=== PATIENT | male | born 1965 | race Caucasian/White ===

== ENCOUNTER 2018-05-07 21:43 | Emergency (ER) | payer BC ==
--- NOTE | 2018-05-07 22:08 | EDM.PDOC ---
ED HPI GENERAL MEDICAL PROBLEM - General Chief Complaint: General Stated Complaint: "had a dizzy spell at work" Time Seen by Provider: 05/07/18 21:59 Source of Information: Reports: Patient History Limitations: Reports: No Limitations - History of Present Illness INITIAL COMMENTS - FREE TEXT/NARRATIVE: This patient is a 52 year old male that presents to the ER. Patient reports that he works at the [employer]. He reports that it was hot and he does manual labor lifting heavy objects. The patient reports that he was feelng hungry, then began to feel lightheaded, nauseated, hot. He reports he felt like he may pass out. He removed himself from the line at work, sat down and ate his sandwhich. He reports that after eating he did feel better and after cooling off. He reports that since he was at work and removed himself from the line he felt he should get checked out. He reports he was concerned. The patient reports that he has lost 25lbs in the last 90 days just from working. He reports he has history of HTN. Denies smoking, drugs, alcohol. Denies cardiac history. Onset: Today Onset Date: 05/07/18 Onset Time: 20:00 Severity: Mild Improves with: Reports: None Worsens with: Reports: None Associated Symptoms: Reports: Nausea/Vomiting. Denies: Confusion, Chest Pain, Cough, cough w sputum, Diaphoresis, Fever/Chills, Headaches, Loss of Appetite, Malaise, Rash, Seizure, Shortness of Breath, Syncope, Weakness - Related Data Allergies Allergy/AdvReac Type Severity Reaction Status Date / Time No Known Allergies Allergy Verified 08/20/14 19:03 Home Meds: Home Meds Metoprolol Tartrate 50 mg PO BID 08/20/14 [History] Multivitamin [Multi Vitamin Daily] 1 each PO DAILY 08/20/14 [History] Lisinopril/Hydrochlorothiazide [Lisinopril-Hctz 20-25 mg Tab] 0.5 tab PO DAILY 05/07/18 [History] Sertraline [Zoloft] 50 mg PO DAILY 05/07/18 [History] Past Medical History Cardiovascular History: Reports: Hypertension Psychiatric History: Reports: Depression - Past Surgical History Cardiovascular Surgical History: Reports: None Social & Family History - Tobacco Use Smoking Status *Q: Never Smoker - Caffeine Use Caffeine Use: Reports: Coffee, Energy Drinks, Soda - Recreational Drug Use Recreational Drug Use: No ED ROS GENERAL - Review of Systems Review Of Systems: See Below Constitutional: Reports: No Symptoms HEENT: Reports: No Symptoms Respiratory: Reports: No Symptoms Cardiovascular: Reports: Lightheadedness. Denies: Chest Pain, Blood Pressure Problem, Dyspnea on Exertion, Edema, Palpitations, Syncope Endocrine: Reports: No Symptoms GI/Abdominal: Reports: Nausea. Denies: Abdominal Pain, Diarrhea, Vomiting : Reports: No Symptoms Musculoskeletal: Reports: No Symptoms Skin: Reports: No Symptoms Neurological: Reports: No Symptoms. Denies: Confusion, Dizziness, Headache, Numbness, Pre-Existing Deficit, Seizure, Syncope, Tingling, Tremors, Trouble Speaking, Difficulty Walking, Weakness, Change in Speech, Gait Disturbance Psychiatric: Reports: No Symptoms Hematologic/Lymphatic: Reports: No Symptoms Immunologic: Reports: No Symptoms ED EXAM, GENERAL - Physical Exam Exam: See Below Exam Limited By: No Limitations General Appearance: Alert, WD/WN, No Apparent Distress Eye Exam: Bilateral Eye: Normal Inspection Ears: Normal External Exam, Normal Canal, Hearing Grossly Normal, Normal TMs Ear Exam: Bilateral Ear: Auricle Normal, Canal Normal, TM normal Nose: Normal Inspection, Normal Mucosa, No Blood Throat/Mouth: Normal Inspection, Normal Lips, Normal Teeth, Normal Gums, Normal Oropharynx, Normal Voice, No Airway Compromise Head: Atraumatic, Normocephalic Neck: Normal Inspection, Supple, Non-Tender, Full Range of Motion Respiratory/Chest: No Respiratory Distress, Lungs Clear, Normal Breath Sounds, No Accessory Muscle Use Cardiovascular: Normal Peripheral Pulses, Regular Rate, Rhythm, No Edema, No Gallop, No JVD, No Murmur, No Rub Peripheral Pulses: 2+: Radial (L), Radial (R), Posterior Tibial (L), Posterior Tibial (R) GI/Abdominal: Soft, Non-Tender Back Exam: Normal Inspection, Full Range of Motion Extremities: Normal Inspection, Normal Range of Motion, Non-Tender, No Pedal Edema, Normal Capillary Refill Neurological: Alert, Oriented, CN II-XII Intact, Normal Cognition, Normal Gait, No Motor/Sensory Deficits Psychiatric: Normal Affect, Normal Mood Skin Exam: Warm, Dry, Intact, Normal Color, No Rash Lymphatic: No Adenopathy EKG INTERPRETATION EKG Date: 05/07/18 Time: 22:11 Rhythm: NSR Rate (Beats/Min): 69 Circle: Normal QRS: Normal ST-T: Normal QT: Normal Comparison: NA - No Prior EKG Course - Vital Signs Last Recorded V/S: Last Vital Signs Temp 97.6 F 05/07/18 21:45 Pulse 78 05/07/18 21:45 Resp 16 05/07/18 21:45 BP 131/71 05/07/18 21:45 Pulse Ox 96 05/07/18 21:45 Orthostatic Blood Pressure [ 131/96 Standing] Orthostatic Blood Pressure [ 131/90 Sitting] Orthostatic Blood Pressure [ 117/78 Supine] - Orders/Labs/Meds Orders: Active Orders 24 hr Category Date Time Status EKG Documentation Completion [RC] STAT Care 05/07/18 22:05 Active Orthostatic Vital Signs [RC] ASDIRECTED Care 05/07/18 22:11 Active Sodium Chloride 0.9% [Normal Saline] 1,000 ml Med 05/07/18 22:42 Active IV .BOLUS Medication Orders Sodium Chloride (Normal Saline) 1,000 mls @ 1,000 mls/hr IV .BOLUS ONE Stop: 05/07/18 23:41 Labs: Laboratory Tests 05/07/18 05/07/18 Range/Units 22:15 22:15 WBC 10.9 H (5.0-10.0) 10^3/uL RBC 5.07 (4.50-6.00) 10^6/uL Hgb 15.5 (14.0-18.0) g/dL Hct 46.6 (40.0-54.0) % MCV 91.9 (82.0-94.0) fL MCH 30.6 (27.0-32.0) pg MCHC 33.3 (33.0-38.0) g/dL RDW Coeff of Yue 14.1 (11.0-15.0) % Plt Count 233 (150-400) 10^3/uL Neut % (Auto) 77.3 (35-85) % Lymph % (Auto) 14.5 (10-55) % Sawyer % (Auto) 7.5 (0-16) % Eos % (Auto) 0.5 (0-5) % Baso % (Auto) 0.2 (0-3) % Neut # (Auto) 8.44 H (1.80-7.00) 10^3/uL Lymph # (Auto) 1.58 (1.00-4.80) 10^3/uL Sawyer # (Auto) 0.82 H (0.00-0.80) 10^3/uL Eos # (Auto) 0.06 (0.00-0.45) 10^3/uL Baso # (Auto) 0.02 10^3/uL Sodium 137 (136-145) mEq/L Potassium 4.8 (3.5-5.0) mEq/L Chloride 99 (98-106) mEq/L Carbon Dioxide 32 (21-32) mmol/L BUN 27 H (7-18) mg/dL Creatinine 2.4 H D (0.7-1.3) mg/dL Est Cr Clr Drug Dosing 33.28 mL/min Estimated GFR (MDRD) 28 L (>=60) mL/min Glucose 177 H D (75-99) mg/dL Calcium 9.5 (8.4-10.1) mg/dL Total Bilirubin 0.4 (0.0-1.0) mg/dL AST 29 (15-37) U/L ALT 54 (12-78) U/L Alkaline Phosphatase 59 (46-116) U/L Troponin I < 0.017 (0.00-0.06) ng/mL Total Protein 8.3 H (6.4-8.2) g/dL Albumin 4.1 (3.4-5.0) g/dL Meds: Medications Generic Name Dose Route Start Last Admin Trade Name Freq PRN Reason Stop Dose Admin Sodium Chloride 1,000 mls @ 1,000 mls/hr 05/07/18 22:42 Normal Saline IV 05/07/18 23:41 .BOLUS ONE - Re-Assessments/Exams Free Text/Narrative Re-Assessment/Exam: 05/07/18 22:32 Orthostatics: WNL: Patient denies lightheaded or any symptoms with orthostatics. He is currently asymptomatic in the ER. laying 117/78, 68 sitting 131/90, 69 standing 131/96, 82 05/07/18 22:43 This patient CR is 2.4, on average is about 1.4. I have ordered NS bolus 1L. I have discussed with the patient admission for rehydration due to renal insufficiency. The patient does not want to be admitted. He says he is no longer lightheaded and feels fine. He reports he would like to go home. I discussed with the patient if he wants to go home, that he needs to see his PCP tomorrow, have labs repeated and may possibly need more fluids tomorrow depending on labs. The patient is okay with this plan. Departure - Departure Time of Disposition: 22:45 Disposition: Home, Self-Care 01 Condition: Fair Clinical Impression: Renal insufficiency, Dehydration - Discharge Information Instructions: Dehydration, Adult, [id number] Referrals: Gucci Witt MD [Primary Care Provider] - Forms: ED Department Discharge Additional Instructions: Followup with your primary care provider tomorrow for repeat labs and recheck Return to the ER for worsening of condition or any emergent concerns Increase Water intake Rest for 24 hours Stay cool for at least 24 hours - My Orders Last 24 Hours: My Active Orders 05/07/18 22:05 EKG Documentation Completion [RC] STAT 05/07/18 22:11 Orthostatic Vital Signs [RC] ASDIRECTED 05/07/18 22:42 Sodium Chloride 0.9% [Normal Saline] 1,000 ml IV .BOLUS - Assessment/Plan Last 24 Hours: My Active Orders 05/07/18 22:05 EKG Documentation Completion [RC] STAT 05/07/18 22:11 Orthostatic Vital Signs [RC] ASDIRECTED 05/07/18 22:42 Sodium Chloride 0.9% [Normal Saline] 1,000 ml IV .BOLUS Plan: PLEASE SEE RN NOTE FOR PFSH.
[2018-05-07 22:34] LABS: CHLORIDE,CL 99 mEq/L (98-106); SODIUM,NA 137 mEq/L (136-145)
[2018-05-07] MEDS: Sodium Chloride 0.9% 1,000 ML IV ONE ×2 (22:49→23:51)
== END 2018-05-08 01:00 | disposition home or self-care (01) ==
LOC: CC.ED 21:43
DX: N28.9 Disorder of kidney and ureter, unspecified (principal); E86.0 Dehydration; I10 Essential (primary) hypertension; Z79.899 Other long term (current) drug therapy
CPT/HCPCS: 36415; 80053; 84484; 85025; 93005; 96365; 96366; 99284; J7030

== ENCOUNTER 2021-07-14 21:49 | Emergency (ER) | payer MEDICAID ==
[2021-07-14] MEDS ORDERED: Labetalol 100 MG/20 ML MDV IVPUSH ONE ×5 (22:22→23:40)
[2021-07-14 22:32] LABS: CHLORIDE,CL 97 mEq/L (98-106); PTT,PARTIAL THROMBOPLSTIN TIME 26.2 SEC (23.2-32.3); SODIUM,NA 138 mEq/L (136-145)
[2021-07-14] MEDS ORDERED: Acetaminophen 650 MG Supp RECTAL ONE (22:44)
[2021-07-14] MEDS ORDERED: Labetalol 100 MG in Sodium Chloride 0.9% 100 ML IV SCH (23:00)
--- NOTE | 2021-07-14 23:20 | EDM.PDOC ---
ED HPI GENERAL MEDICAL PROBLEM - General Chief Complaint: General Stated Complaint: possible stroke Time Seen by Provider: 07/14/21 22:00 Source of Information: Reports: Patient, EMS, RN History Limitations: Reports: Altered Mental Status - History of Present Illness INITIAL COMMENTS - FREE TEXT/NARRATIVE: Ramon is a 55 yo male who is brought into the ED via [facility] with complaints of stroke symptoms. Patient had been found to be screaming at his residence this evening. Neighbor did call 911 and police had to gain entrance thru the window to let them in the house. Patient was found lying on his left side on the floor. They state he was answering questions however speech was significantly slurred. They state there was no movement of the left upper and lower extremity, which were cold to touch. They did state he had obvious facial drip as well. Upon arrival to the ED patient continued to show significant facial drip with hemiparesis of the left side of his body. Right pupil was reactive. Left pupil was fixed. He did answer correctly to person and place. He did know the current year but unable to distinguish which month. Initial NIHSS score of 21. Unknown l ast being well. - Related Data Allergies Allergy/AdvReac Type Severity Reaction Status Date / Time No Known Allergies Allergy Verified 07/14/21 22:38 Home Meds: Home Meds Metoprolol Tartrate 50 mg PO BID 08/20/14 [History] Multivitamin [Multi Vitamin Daily] 1 each PO DAILY 08/20/14 [History] Lisinopril/Hydrochlorothiazide [Lisinopril-Hctz 20-25 mg Tab] 0.5 tab PO DAILY 05/07/18 [History] Sertraline [Zoloft] 50 mg PO DAILY 05/07/18 [History] Past Medical History Cardiovascular History: Reports: Hypertension Psychiatric History: Reports: Depression - Past Surgical History Cardiovascular Surgical History: Reports: None Social & Family History - Caffeine Use Caffeine Use: Reports: Coffee, Energy Drinks, Soda ED ROS GENERAL - Review of Systems Review Of Systems: Unable To Obtain Reason Not Obtained: CVA ED EXAM, GENERAL - Physical Exam Exam: See Below Exam Limited By: Altered Mental Status General Appearance: Alert, Lethargic Eye Exam: Right Eye: Abnormal Pupil, Left Eye: PERRL, Bilateral Eye: EOMI Ears: Normal External Exam, Normal Canal, Hearing Grossly Normal, Normal TMs Nose: Normal Inspection, Normal Mucosa, No Blood Throat/Mouth: Normal Gums, Normal Oropharynx, Normal Voice, No Airway Compromise Head: Atraumatic, Normocephalic Neck: Normal Inspection, Supple Respiratory/Chest: No Respiratory Distress, Lungs Clear, No Accessory Muscle Use Cardiovascular: Regular Rate, Rhythm, No Edema, No Murmur Peripheral Pulses: 2+: Posterior Tibial (L), Posterior Tibial (R), Dorsalis Pedis (L), Dorsalis Pedis (R) GI/Abdominal: Normal Bowel Sounds, Soft Neurological: Slow to Respond, Sensory/Motor Deficit (NIHSS 21 - unable to move left upper and lower extremity. Obvious facial drip on the left. Pupil fixed on the right. ) Psychiatric: Flat Affect Skin Exam: Cool (left upper and lower extremity) #1 Interpretation EKG Date: 07/14/21 Time: 22:00 Rhythm: NSR Comparison: NA - No Prior EKG EKG Interpretation Comments: Left posterior fascicular block, possible inferior infarct Course - Orders/Labs/Meds Orders: Active Orders 24 hr Category Date Time Status Head wo Cont [CT] Routine Exams 07/14/21 Taken Labetalol [Normodyne] 100 mg Med 07/14/21 23:00 Ordered Sodium Chloride 0.9% [Normal Saline] 100 ml IV TITRATE Medication Orders Labetalol HCl 100 mg/ Sodium (Chloride) 120 mls @ 36 mls/hr IV TITRATE LETA; Protocol Labs: Laboratory Tests 07/14/21 07/14/21 07/14/21 Range/Units 22:04 22:12 22:12 WBC 8.9 (4.0-11.0) 10^3/uL RBC 5.69 (4.50-6.00) x10^6/uL Hgb 17.0 (14.0-18.0) g/dL Hct 50.4 (42.0-52.0) % MCV 88.6 (83.0-97.0) fL MCH 29.9 (27.0-32.0) pg MCHC 33.7 (32.0-36.0) g/dL RDW Coeff of Yue 13.5 (11.0-15.0) % Plt Count 221 (150-400) 10^3/uL Immature Gran % (Auto) 0.1 (0.0-4.9) % Neut % (Auto) 84.4 H (41-71) % Lymph % (Auto) 3.6 L (24-44) % [place]phill % (Auto) 11.7 H (0-10) % Eos % (Auto) 0.0 (0-6) % Baso % (Auto) 0.2 (0-1) % Neut # (Auto) 7.53 (1.80-8.00) x10^3/uL Lymph # (Auto) 0.32 L (0.60-5.00) 10^3/uL [place]ill # (Auto) 1.04 (0.00-1.50) 10^3/uL Eos # (Auto) 0.00 (0.00-1.50) 10^3/uL Baso # (Auto) 0.02 (0.00-0.50) 10^3/uL Immature Gran # (Auto) 0.01 (0.00-0.49) 10^3/uL PT (9.7-12.3) SEC INR (0.92-1.18) APTT (23.2-32.3) SEC Sodium 138 (136-145) mEq/L Potassium 3.7 (3.5-5.0) mEq/L Chloride 97 L (98-106) mEq/L Carbon Dioxide 31 (21-32) mmol/L BUN 17 (7-18) mg/dL Creatinine 1.3 (0.7-1.3) mg/dL Est Cr Clr Drug Dosing TNP Estimated GFR (MDRD) 57 L (>=60) mL/min Glucose 115 H (75-99) mg/dL POC Glucose 101 (75-105) mg/dL Calcium 9.1 (8.4-10.1) mg/dL Total Bilirubin 0.5 (0.0-1.0) mg/dL AST 23 (15-37) U/L ALT 28 (12-78) U/L Alkaline Phosphatase 66 (46-116) U/L Creatine Kinase 203 (35-232) U/L Troponin I High Sens 84.2 H* (<=76) pg/mL Total Protein 8.6 H (6.4-8.2) g/dL Albumin 4.0 (3.4-5.0) g/dL Urine Color (YELLOW) Urine Appearance (CLEAR) Urine pH (4.5-8.0) Ur Specific [place] (1.003-1.020) Urine Protein (NEGATIVE) mg/dL Urine Glucose (UA) (NEGATIVE) mg/dL Urine Ketones (NEGATIVE) mg/dL Urine Occult Blood (NEGATIVE) Urine Nitrite (NEGATIVE) Urine Bilirubin (NEGATIVE) Urine Urobilinogen (0.2-1.0) EU/dL Ur Leukocyte Esterase (NEGATIVE) U Hyaline Cast (Auto) (NOT SEEN) /LPF Urine RBC (0-5) /HPF Urine WBC (0-5) /HPF Ur Epithelial Cells (NOT SEEN) /HPF Granular Casts (Auto) (NOT SEEN) /LPF Urine Mucus (NOT SEEN) /HPF SARS CoV-2 RNA Rapid MARK (NEGATIVE) 07/14/21 07/14/21 07/14/21 Range/Units 22:12 22:37 22:45 WBC (4.0-11.0) 10^3/uL RBC (4.50-6.00) x10^6/uL Hgb (14.0-18.0) g/dL Hct (42.0-52.0) % MCV (83.0-97.0) fL MCH (27.0-32.0) pg MCHC (32.0-36.0) g/dL RDW Coeff of Yue (11.0-15.0) % Plt Count (150-400) 10^3/uL Immature Gran % (Auto) (0.0-4.9) % Neut % (Auto) (41-71) % Lymph % (Auto) (24-44) % [place]phill % (Auto) (0-10) % Eos % (Auto) (0-6) % Baso % (Auto) (0-1) % Neut # (Auto) (1.80-8.00) x10^3/uL Lymph # (Auto) (0.60-5.00) 10^3/uL [place]ill # (Auto) (0.00-1.50) 10^3/uL Eos # (Auto) (0.00-1.50) 10^3/uL Baso # (Auto) (0.00-0.50) 10^3/uL Immature Gran # (Auto) (0.00-0.49) 10^3/uL PT 10.4 (9.7-12.3) SEC INR 0.95 (0.92-1.18) APTT 26.2 (23.2-32.3) SEC Sodium (136-145) mEq/L Potassium (3.5-5.0) mEq/L Chloride (98-106) mEq/L Carbon Dioxide (21-32) mmol/L BUN (7-18) mg/dL Creatinine (0.7-1.3) mg/dL Est Cr Clr Drug Dosing Estimated GFR (MDRD) (>=60) mL/min Glucose (75-99) mg/dL POC Glucose (75-105) mg/dL Calcium (8.4-10.1) mg/dL Total Bilirubin (0.0-1.0) mg/dL AST (15-37) U/L ALT (12-78) U/L Alkaline Phosphatase (46-116) U/L Creatine Kinase (35-232) U/L Troponin I High Sens (<=76) pg/mL Total Protein (6.4-8.2) g/dL Albumin (3.4-5.0) g/dL Urine Color Yellow (YELLOW) Urine Appearance Slightly cloudy (CLEAR) Urine pH 5.5 (4.5-8.0) Ur Specific [place] >= 1.030 H (1.003-1.020) Urine Protein >=300 H (NEGATIVE) mg/dL Urine Glucose (UA) Negative (NEGATIVE) mg/dL Urine Ketones Negative (NEGATIVE) mg/dL Urine Occult Blood Moderate H (NEGATIVE) Urine Nitrite Negative (NEGATIVE) Urine Bilirubin Negative (NEGATIVE) Urine Urobilinogen 0.2 (0.2-1.0) EU/dL Ur Leukocyte Esterase Negative (NEGATIVE) U Hyaline Cast (Auto) Few H (NOT SEEN) /LPF Urine RBC 0-5 (0-5) /HPF Urine WBC 0-5 (0-5) /HPF Ur Epithelial Cells Few H (NOT SEEN) /HPF Granular Casts (Auto) Few (NOT SEEN) /LPF Urine Mucus Few H (NOT SEEN) /HPF SARS CoV-2 RNA Rapid MARK Positive H (NEGATIVE) Meds: Medications Generic Name Dose Route Start Last Admin Trade Name Freq PRN Reason Stop Dose Admin Labetalol HCl 100 mg/ Sodium 120 mls @ 36 mls/hr 07/14/21 23:00 Chloride IV TITRATE LETA Protocol 0.5 MG/MIN Discontinued Medications Generic Name Dose Route Start Last Admin Trade Name Jacklyn PRN Reason Stop Dose Admin Acetaminophen 650 mg 07/14/21 22:44 Acetaminophen 650 Mg Supp RECTAL 07/14/21 22:45 NOW ONE Labetalol HCl 10 mg 07/14/21 22:22 07/14/21 22:29 Labetalol 100 Mg/20 Ml Mdv IVPUSH 07/14/21 22:23 10 mg ONETIME ONE Administration Protocol Labetalol HCl 10 mg 07/14/21 22:54 07/14/21 22:59 Labetalol 100 Mg/20 Ml Mdv IVPUSH 07/14/21 22:55 10 mg ONETIME ONE Administration Protocol Departure - Departure Time of Disposition: 23:36 Disposition: DC/Tfer to [facility] 02 Clinical Impression: Intracerebral hemorrhage, Hypertensive intracerebral hemorrhage - Discharge Information - Problem List & Annotations (1) Hypertensive intracerebral hemorrhage SNOMED Code(s): 853012614 Code(s): I61.9 - NONTRAUMATIC INTRACEREBRAL HEMORRHAGE, UNSPECIFIED Status: Acute (2) Intracerebral hemorrhage SNOMED Code(s): 582671054 Code(s): I61.9 - NONTRAUMATIC INTRACEREBRAL HEMORRHAGE, UNSPECIFIED Status: Acute Qualifiers: Intracerebral hemorrhage etiology: nontraumatic Cerebral hemorrhage location: unspecified cerebral location Laterality: right Qualified Code(s): I61.9 - Nontraumatic intracerebral hemorrhage, unspecified (3) Lab test positive for detection of COVID-19 virus SNOMED Code(s): 7167832731201687 Code(s): U07.1 - COVID-19 Status: Acute - Problem List Review Problem List Initiated/Reviewed/Updated: Yes - My Orders Last 24 Hours: My Active Orders 07/14/21 Head wo Cont [CT] Routine 07/14/21 23:00 Labetalol [Normodyne] 100 mg Sodium Chloride 0.9% [Normal Saline] 100 ml IV TITRATE - Assessment/Plan Last 24 Hours: My Active Orders 07/14/21 Head wo Cont [CT] Routine 07/14/21 23:00 Labetalol [Normodyne] 100 mg Sodium Chloride 0.9% [Normal Saline] 100 ml IV TITRATE Plan: CT of the head did show right thalamic and basal ganglia hemorrhage with mild right to left midline shift. Troponin was slightly elevated tonight. COVID test positive. Patient was given Labetalol 10mg bolus secondary to 204/119 blood pressure. Repeat 10mg boluses were given as there is no nicardipine available. Blood pressure did improve to 139/93. Repeat blood pressures q10 minutes, please see nursing documentation for full vitals. Dr. Pedraza was consulted, neurosurgery, [place] in [place] who kindly accepted transfer. Patient remained alert and orientated during his time in the ED. Life flight en route. Unable to provide risks and benefits of transfer to patient due to condition. D /t patient condition it was determined the benefits of transfer completely outweighed the risk.
== END 2021-07-15 00:23 ==
LOC: CC.ED 21:49
DX: I61.9 Nontraumatic intracerebral hemorrhage, unspecified (principal); U07.1 COVID-19; I10 Essential (primary) hypertension; Z79.899 Other long term (current) drug therapy
CPT/HCPCS: 36415; 70450; 80053; 81001; 82550; 82947; 84484; 85025; 85610; 85730; 87635; 96374; 96376; 99285; J3490; U0002